=== PATIENT | male | born 1990 | race Caucasian/White ===

== ENCOUNTER 2023-05-01 02:01 | Inpatient (IN) | payer OTHER ==
[2023-05-01] VITALS (21 sets, daily range): BP systolic 115–161; BP diastolic 79–110
[~2023-05-01] VITALS: Ht 180.3 cm; Wt 149.1 kg
[2023-05-01 02:19] LABS: BASOPHILS ABSOLUTE AUTO 0.08 K/mm3 (0.00-0.23); BASOPHILS PERCENT AUTO 1 % (0-2); EOSINOPHILS PERCENT AUTO 0 % (0-6); Hematocrit 44.4 % (37.0-53.0); Hemoglobin 15.3 g/dL (13.5-17.5); IMMATURE GRAN ABSOLUTE AUTO 0.07 K/mm3 (0.00-0.10); IMMATURE GRAN PERCENT AUTO 1 % (0-1); LYMPHOCYTES ABSOLUTE AUTO 3.16 K/mm3 (0.84-5.20); LYMPHOCYTES PERCENT AUTO 26 % (21-46); MONOCYTES ABSOLUTE AUTO 0.76 K/mm3 (0.16-1.47); MONOCYTES PERCENT AUTO 6 % (4-13); Mean Corpuscular HGB 29.7 pg (26.0-34.0); Mean Corpuscular HGB Conc 34.5 g/dL (31.5-36.5); Mean Corpuscular Volume 86 fL (80-100); Mean Platelet Volume 10.4 fL (9.1-12.4); NEUTROPHILS ABSOLUTE AUTO 7.95 K/mm3 (1.96-9.15); NEUTROPHILS PERCENT AUTO 66 % (41-73); Platelet Count 306 K/mm3 (150-400); RDW Coefficient Variation 12.3 % (11.7-14.2); RDW Standard Deviation 38.7 fL (35.1-46.3); Red Blood Cell Count 5.16 M/mm3 (4.30-5.90); White Blood Cell Count 12.02 K/mm3 (4.00-11.30)
[2023-05-01 02:49] LABS: Ethanol (Alcohol), Blood, Med <3 mg/dL; Salicylate <1.7 mg/dL (2.8-20.0)
[2023-05-01 03:21] LABS: Alanine Aminotransfer (ALT/SGP 48 U/L (12-78); Albumin, Blood 4.1 g/dL (3.4-5.0); Alk Phos 80 U/L (50-136); Anion Gap 8 mmol/L (6-16); Aspartate Aminotrans (AST/SGOT 25 U/L (12-37); Bilirubin, Total 0.4 mg/dL (0.1-1.0); Blood Urea Nitrogen 16 mg/dL (8-24); Bun/Creatinine Ratio 21.9 (12.0-20.0); CO2, Blood 24 mmol/L (21-32); Calcium, Blood 9.5 mg/dL (8.5-10.1); Chloride, Blood 105 mmol/L (98-108); Creatinine, Blood 0.73 mg/dL (0.60-1.20); Glomerular Filtration Rate 124 (60-); Glucose, Blood 201 mg/dL (70-99); Potassium, Blood 3.2 mmol/L (3.5-5.5); Sodium, Blood 137 mmol/L (136-145); Total Protein, Blood 8.1 g/dL (6.4-8.2)
[2023-05-01 03:22] LABS: Acetaminophen, Random <2.0 ug/mL (10.0-30.0)
[2023-05-01 06:19] LABS: BASOPHILS ABSOLUTE AUTO 0.06 K/mm3 (0.00-0.23); BASOPHILS PERCENT AUTO 1 % (0-2); EOSINOPHILS PERCENT AUTO 0 % (0-6); Hematocrit 41.8 % (37.0-53.0); Hemoglobin 14.5 g/dL (13.5-17.5); IMMATURE GRAN ABSOLUTE AUTO 0.04 K/mm3 (0.00-0.10); IMMATURE GRAN PERCENT AUTO 0 % (0-1); LYMPHOCYTES ABSOLUTE AUTO 1.45 K/mm3 (0.84-5.20); LYMPHOCYTES PERCENT AUTO 12 % (21-46); MONOCYTES ABSOLUTE AUTO 0.52 K/mm3 (0.16-1.47); MONOCYTES PERCENT AUTO 4 % (4-13); Mean Corpuscular HGB 29.9 pg (26.0-34.0); Mean Corpuscular HGB Conc 34.7 g/dL (31.5-36.5); Mean Corpuscular Volume 86 fL (80-100); Mean Platelet Volume 10.3 fL (9.1-12.4); NEUTROPHILS ABSOLUTE AUTO 10.01 K/mm3 (1.96-9.15); NEUTROPHILS PERCENT AUTO 83 % (41-73); Platelet Count 276 K/mm3 (150-400); RDW Coefficient Variation 12.4 % (11.7-14.2); RDW Standard Deviation 39.1 fL (35.1-46.3); Red Blood Cell Count 4.85 M/mm3 (4.30-5.90); White Blood Cell Count 12.08 K/mm3 (4.00-11.30)
[2023-05-01 06:27] LABS: Bun/Creatinine Ratio 19.5 (12.0-20.0); Calcium, Blood 9.2 mg/dL (8.5-10.1); Creatinine, Blood 0.77 mg/dL (0.60-1.20)
--- NOTE | 2023-05-01 07:22 | NUR ---
PT ARRIVED TO ICU AT 0619 TRANSPORTED BY [facility] AND PCT/SITTER. PT IS A/O X4, SLIGHTLY DROWSY BUT ABLE TO ANSWER ALL QUESTIONS APPROPRIATELY. MOVED TO ICU BED, ORIENTED TO ROOM, CALL LIGHT NOT PROVIDED PT HAS BEDSIDE SITTER AND IS ON HIGH SI PRECAUTIONS. ALL CIVIL RIGHTS NOTIFICATIONS AND HOLD PAPERWORK VERIFIED IN CHART. PT IS AWARE THAT HE IS ON A HOLD. HE GIVES HIS MOTHERS NAME PERSON DESIGNATED TO MAKE MEDICAL DECISIONS FOR HIM IN THE EVENT HE CANNOT. CONTINUOUS CARDIAC MONITORING IN PLACE, SR, BP WNL. LUNGS CTA, O2 SAT 94% ON ROOM AIR. DENIES ANY NAUSEA ALTHOUGH HAD ACTIVE VOMITING UPON ARRIVAL TO ER. HAS NOT VOIDED. NEEDS UA WHEN HE DOES VOID. SKIN INTACT, VERIFIED WITH CORY SHIPLEY. PIV X2, RIGHT FOREARM HAS IVF AND POTASSIUM INFUSING. LEFT AC SL. NO FAMILY AT BEDSIDE. POC ONGOING.
[2023-05-01 09:15] LABS: Bun/Creatinine Ratio 18.7 (12.0-20.0); Calcium, Blood 9.3 mg/dL (8.5-10.1); Creatinine, Blood 0.7 mg/dL (0.60-1.20); Potassium, Blood 4.1 mmol/L (3.5-5.5)
--- NOTE | 2023-05-01 09:15 | NUR ---
ASSUMED CARE / DR VERDIN: REPORT RECEIVED FROM JUDITH Baxter RN. ASSUMED CARE OF THIS PT AT APPROX 0700. ON ASSESSMENT, THE PT IS RESTING QUIETLY & AWAKENS EASILY TO VERBAL STIMULUS. HE CURRENTLY DENIES ANY SI OR PAIN. STS HE REMEMBERS "MOST" OF THE EVENTS LAST NIGHT PRIOR TO HIS ADMISSION. HIGH RISK SI PRECAUTIONS REMAIN IN PLACE W/ 1:1 SITTER AT BEDSIDE. PSYCH EVAL CALLED TO ON-CALL PROVIDER THIS AM. LS CLEAR T/O, PT ON RA W/ O2 SATS > 94% ON AVG. MONITOR SHOWS SR W/ HR 70-80s, BP STABLE. PT DENIES GI COMPLAINTS, PO MEDS HELD THIS AM PER CLINICAL JUDGEMENT THE PT IS ABLE TO VERBALIZE APPROPRIATELY BUT THEN QUICKLY RESUMES SLEEPING. NO URINARY VOID NOTED YET, PT DENIES NEED OR SENSATION TO VOID AT THIS TIME. SKIN CONDITION OVERALL INTACT, PT REPOSITIONS SELF FOR COMFORT PRN. PROVIDER AT BEDSIDE THIS AM TO GAURANGAL PT. DISCUSSED NORMAL POTASSIUM VALUE ON MOST RECENT LABS W/ ADDITIONAL 20 MEQ KCL ORDERED TO BE GIVEN, HE STS TO HOLD ADDITIONAL KCL & DISCONTINUE ORDER. REPEAT BMPs ORDERED PER POISON CENTER & NOC SHIFT PROVIDER, WILL REEVALUATE POTASSIUM LEVEL BASED ON THOSE LABS. THIS RN HAS CLARIFIED & PROVIDER STS THAT NO ADDITIONAL EKG IS NECESSARY IF THE PT IS GETTING CONTINUOUS TELE MONITORING W/ QTc MEASUREMENTS. NO OTHER CHANGES AT THIS TIME.
--- NOTE | 2023-05-01 09:45 | NUR ---
POISON CONTROL: CALL FROM POISON CENTER REGARDING THIS PT. UPDATED W/ CURRENT LABS & VS. POISON CONTROL HAS NO CONCERNS AT THIS TIME, CONTINUE TO MONITOR FOR QTc PROLONGATION & DECREASED RENAL FUNCTION. REPEAT BMPs ORDERED. NO CHANGES AT THIS TIME, POISON CENTER WILL CHECK BACK FOR UPDATED LABS & VS THIS AFTERNOON.
--- NOTE | 2023-05-01 14:20 | NUR ---
DR MODI: PROVIDER AT BEDSIDE TO EVAL PT. HE IS RECOMMENDING INPATIENT PSYCH HOSPITALIZATION AT THIS TIME. 1:1 SITTER REMAINS AT BEDSIDE FOR ACTIVE SI RISK. WELLBUTRIN ORDERED DAILY TO START NOW. NO OTHER CHANGES AT THIS TIME.
[2023-05-01 14:37] LABS: U Amphetamine Screen Not Detected; U Barbituate Screen Not Detected; U Benzodiazapine Screen Not Detected; U Buprenorphine Screen Not Detected; U Cannabinoids Screen Not Detected; U Cocaine Screen Not Detected; U Methadone Screen DETECTED; U Methamphetamine Screen Not Detected; U Opiates Screen Not Detected; U Oxycodone Screen Not Detected; U Phencyclidine Screen Not Detected; U Propoxyphene Screen Not Detected
[2023-05-01 14:43] LABS: Bun/Creatinine Ratio 17.8 (12.0-20.0); Calcium, Blood 9.3 mg/dL (8.5-10.1); Creatinine, Blood 0.67 mg/dL (0.60-1.20); Potassium, Blood 3.9 mmol/L (3.5-5.5)
[2023-05-01 18:14] LABS: Bun/Creatinine Ratio 15.8 (12.0-20.0); Calcium, Blood 9.2 mg/dL (8.5-10.1); Creatinine, Blood 0.7 mg/dL (0.60-1.20); Potassium, Blood 3.9 mmol/L (3.5-5.5)
--- NOTE | 2023-05-01 18:37 | NUR ---
SHIFT SUMMARY: NO ACUTE CHANGES SINCE PRIOR UPDATES. PT REMAINS A&O, COOPERATIVE W/ CARE. LS CLEAR T/O, PT ON RA W/ O2 SATS > 94% ON AVG. MONITOR SHOWS SR W/ HR 60-70s, BP STABLE. PT HAS NO GI COMPLAINTS, IS TOLERATING PO INTAKE WELL. VOIDS URINE W/O DIFFICULTY. SKIN CONDITION OVERALL INTACT. PT ABLE TO REPOSITION SELF FOR COMFORT PRN. 1:1 SITTER REMAINS AT BEDSIDE FOR CONTINUED HIGH RISK SI. AWAITING INPATIENT PSYCHIATRIC BED AVAILABILITY. FAMILY HAS BEEN ALLOWED TO VISIT AT BEDSIDE W/ PT's APPROVAL. THEY HAVE BEEN SUPPORTIVE IN CARE W/ NO ISSUES NOTED. WILL CONTINUE TO MONITOR & REPORT OFF TO ONCOMING RN.
--- NOTE | 2023-05-01 19:25 | NUR ---
ASSUMED CARE OF PT AT 1900 BEDSIDE REPORT RECIEVED FROM CORY DOMINGUEZ. PT IS A/O, RESTING, STARTLES EASILY WHEN AWAKENING. 1:1 SITTER AT BEDSIDE. PT VERBALIZES AWARNESS OF SURROUNDINGS AND HAS CALL LIGHT WITHIN REACH. AFFECT FLAT BUT PT APPROPRIATE, COOPERATIVE AND PLEASANT. NO FAMILY AT BEDSIDE. REPORTEDLY HAD BRIEF VISITS WITH MOTHER, SISTER AND FATHER TODAY. ALL FAMILY INTERACTIONS WERE REPORTEDLY APPROPRIATE. CONTINUOUS CARDIAC MONITORING IN PLACE, SR, NO ECTOPY NOTED. BP WNL. LUNGS CTA X ALL [place], SPO2 > 94% ON ROOM AIR. NO NAUSEA AT PRESENT, HAS BEEN TOLERATING PO WELL. VOIDS USING URINAL OR BSC. SKIN INTACT. PIV X2 WITH NS INFUSING AT 75 ML/HR. PT REMAINS ON A 2 MD HOLD WITH PSYCHIATRY AND SOCIAL WORK FOLLOWING. PLAN IS INPATIENT PSYCH AT THIS TIME. POC ONGOING.
[2023-05-01 22:24] LABS: Bun/Creatinine Ratio 16.1 (12.0-20.0); Creatinine, Blood 0.75 mg/dL (0.60-1.20); Potassium, Blood 3.8 mmol/L (3.5-5.5)
[2023-05-02] VITALS (18 sets, daily range): BP systolic 108–151; BP diastolic 73–102
[2023-05-02 01:50] LABS: Calcium, Blood 8.9 mg/dL (8.5-10.1); Creatinine, Blood 0.75 mg/dL (0.60-1.20); Potassium, Blood 3.8 mmol/L (3.5-5.5)
[2023-05-02 05:49] LABS: Bun/Creatinine Ratio 14.2 (12.0-20.0); Creatinine, Blood 0.92 mg/dL (0.60-1.20); Potassium, Blood 4.1 mmol/L (3.5-5.5)
--- NOTE | 2023-05-02 06:43 | NUR ---
SHIFT SUMMARY PT SLEPT MAJORITY OF THE SHIFT. FREQUENT ROUNDING BY RN AND 1:1 SITTER AT BEDSIDE. REMAINS ON A 2 MD HOLD. V/S STABLE, AFFECT FLAT BUT PT DENIES ANY SI OR PLAN AT THIS TIME. LABS COMPLETED EVERY 4 HOURS ORDERED. OOB X1 TO VOID. STEADY ON HIS FEET. IVF INFUSING AT 75ML/HR. PT TOLERATING PO INTAKE WELL. NO CALLS FROM FAMILY FOR UPDATES. NO FAMILY AT BEDSIDE. POC ONGOING.
[2023-05-02 09:47] LABS: Bun/Creatinine Ratio 17.1 (12.0-20.0); Calcium, Blood 8.6 mg/dL (8.5-10.1); Creatinine, Blood 0.76 mg/dL (0.60-1.20); Potassium, Blood 4.1 mmol/L (3.5-5.5)
--- NOTE | 2023-05-02 16:03 | NUR ---
DAYSHIFT SUMMARY [id number] PT HAD UNEVENTFUL DAY LYING BED WATCHING TV AND SLEEPING. PT HAS BEEN VOIDING WELL IN TOILET UNASSISTED. PT EATING MOST OF HIS MEALS. PT MADE MED NO TELE STATUS AND TO MOVED TO RM 352. PT'S VS REMAINED STABLE. 1 ON 1 SITTER IN DOORWAY ALL SHIFT. REPORT GIVEN TO TAD SIFUENTES RN.
--- NOTE | 2023-05-02 19:38 | NUR ---
1800 ASSUMED CARE OF PT. RECEIVED PT AT 1800 VIA W/C FROM ICU 10. RECEIVED REPORT FROM AKILA RAY. PT ON 2 MD HOLD WAITING FOR INPATIENT PSYCH BED. 1910 DR VERDIN CALLED TO REPORT THAT PT HAS BEEN ACCEPTED TO [facility] AT 1900. TRANSFER CENTER TO CALL US. [facility] UPD[facility] AT START OF SHIFT. 1930 TRANSFER FAUC[facility] CALLED TO REPORT THAT DOC TO DOC FOR ACCEPTING PT TO INPATIENT UNIT HAD BEEN DONE. THEY REQUESTED NAME OF RN FOR NURSE TO NURSE, WELL NAME OF PERSON WHO WILL SET UP SECURE TRANSPORT. JULEE RN UPDATED AND WILL COMPLETE NEEDED PROCESS. REPORT GIVEN TO CRISTINA EPSTEIN RN.
[2023-05-03 02:55] VITALS: BP 127/81
[2023-05-03 03:49] VITALS: BP 137/87
== END 2023-05-03 04:31 | DRG 918 ==
LOC: ER 02:01 → ICUE 04:08 → MEDS 05-02 17:55
PROVIDERS: Family Medicine; Psychiatry & Neurology Psychiatry; Student in an Organized Health Care Education/Training Program; ADMIT Internal Medicine
DX: T39.312A Poisoning by propionic acid derivatives, intentional self-harm, initial encounter (principal); R45.851 Suicidal ideations; T45.0X2A Poisoning by antiallergic and antiemetic drugs, intentional self-harm, initial encounter; I10 Essential (primary) hypertension; F32.A Depression, unspecified; E11.9 Type 2 diabetes mellitus without complications; E87.6 Hypokalemia; Z87.891 Personal history of nicotine dependence; Z79.899 Other long term (current) drug therapy; Z79.84 Long term (current) use of oral hypoglycemic drugs
CPT/HCPCS: 36415; 80048; 80053; 82947; 83735; 85025; 93005; 93010; 96361; 96374; 99285-25; A9270; G0480; J1650; J3480; J7030